=== PATIENT | female | born 1985 | race Caucasian/White ===

== ENCOUNTER → 2019-05-01 | Day surgery (SDC) | payer MEDICARE ==
[~2019-05-01] MED LIST: CRESTOR10 MG PO; LAMOTRIGINE100 MG PO; LIDOCAINE HCL 2% LOCAL INJ 5 ML SDV VIAL INJ ONE; LISINOPRIL10 MG PO; MIDAZOLAM HCL 2 MG/2 ML VIAL ONE; PROPOFOL IV EMULSION 10 MG/ML 20 ML VIAL ONE; VENLAFAXINE HCL75 MG PO
--- NOTE | 2019-05-01 09:10 | Operative Report ---
DATE OF PROCEDURE: 05/01/2019 SURGEON: Kevon Evans MD PREOPERATIVE DIAGNOSES: 1. Epigastric pain. 2. 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 POSTOPERATIVE DIAGNOSES: 1. Epigastric pain. 2. 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 3. Large hiatal hernia. 4. Severe gastritis. 5. Duodenal ulcers. PREOPERATIVE INDICATION: Assess for mucosal disease. PROCEDURES: Esophagogastroduodenoscopy with biopsies (CPT 38957). ANESTHESIA: Moderate sedation. ASSISTANTS: None. FLUIDS: As per anesthesia. ESTIMATED BLOOD LOSS: Minimal. DRAINS: None. COMPLICATIONS: None. SPECIMENS: 1. Distal esophageal biopsy. 2. Antral gastric biopsy x2. 3. Duodenal ulcer biopsy. GRAFTS: None. FINDINGS: 1. Large hiatal hernia with erythematous GE junction. 2. Severe gastritis in the antrum. 3. Duodenal ulcer x2 in the 1st portion of the duodenum. DESCRIPTION OF PROCEDURE: The patient was brought to the endoscopy suite and sedated with IV propofol. A preprocedure pause was performed. An adult-sized endoscope was introduced through the oropharynx and guided to the 2nd portion of the duodenum. A large hiatal hernia was noted as before. Severe gastritis in the antrum was also present. There was some duodenal ulceration in the 1st portion of the duodenum without stigmata of bleeding or any visible vessels. Biopsies were obtained as previously described. Prior to removing the endoscope, the stomach was desufflated. The scope was removed. The patient tolerated the procedure well. Type of wound was type 1, clean. Kevon Evans MD C/MODL /[id number]
[2019-05-01 09:25] VITALS: BP 117/88
== END | disposition home or self-care (01) ==
LOC: OR 07:08
PROVIDERS: ATTEND Surgery
DX: K29.70 Gastritis, unspecified, without bleeding (principal); K26.9 Duodenal ulcer, unspecified as acute or chronic, without hemorrhage or perforation; K21.0 Gastro-esophageal reflux disease with esophagitis; K44.9 Diaphragmatic hernia without obstruction or gangrene; K90.9 Intestinal malabsorption, unspecified; Z90.3 Acquired absence of stomach [part of]; I10 Essential (primary) hypertension; E78.5 Hyperlipidemia, unspecified; F31.9 Bipolar disorder, unspecified; F41.9 Anxiety disorder, unspecified; Z86.19 Personal history of other infectious and parasitic diseases
CPT/HCPCS: 43239; 81025; 88305; 88312; J2001; J2250; J2704